=== PATIENT | female | born 1950 | race Caucasian/White ===

== ENCOUNTER 2018-01-08 22:48 | Observation (INO) ==
[2018-01-08] MEDS ORDERED: methylPREDNISolone SOD SUC 125 MG/2 ML VIAL IV STA (23:12)
[2018-01-08] MEDS ORDERED: diphenhydrAMINE 50 MG/1 ML VIAL IV STA (23:12)
[2018-01-08] MEDS ORDERED: FAMOTIDINE 20 MG/2 ML VIAL IV STA (23:12)
[2018-01-08] MEDS ORDERED: EPINEPHrine 1 MG/ML VIAL SUBCUT STA (23:12)
[2018-01-08] MEDS ORDERED: SODIUM CHLORIDE 0.9% 1,000 ML IV PRN (23:31)
[2018-01-08 23:46] LABS: Basophils # 0.1 10*3/uL (0.0-0.2); Basophils % 0.9 % (0.0-0.8); Eosinophils # 0.2 10*3/uL (0.0-0.87); Eosinophils % 2.8 % (0.00-10.9); Hematocrit 43.7 VOL% (35.7-47.0); Hemoglobin 14.1 GM/DL (12.0-16.0); Immature Granulocytes % 0.3 %; Immature Granulocytes Absolute 0.02 #; Lymphocytes # 2.4 10*3/uL (1.4-4.0); Lymphocytes % 30.4 % (21.3-54.2); Mean Corpuscular HGB Conc 32.3 GM/DL (32-36); Mean Corpuscular Hemoglobin 28 PG (27-34); Mean Corpuscular Volume 87.6 FL (87-102); Mean Platelet Volume 9.6 FL (9.6-12.0); Monocytes # 0.8 10*3/uL (0.11-0.8); Monocytes % 10.6 % (1.7-12.7); Neutrophils # 4.3 10*3/uL (1.4-7.4); Platelet Count 202 T/CUMM (130-400); Red Blood Count 4.99 MC/CUMM (3.8-5.5); Red Cell Distribution Width 13.3 % (9.3-17.3); White Blood Count 7.8 T/CUMM (4-12)
[2018-01-08 23:57] LABS: INR 0.9; PT Patient Result 9.4 SECS
[2018-01-08 23:59] LABS: Alanine Aminotransferase 24 U/L (13-56); Albumin 3.8 G/DL (3.4-5.0); Alkaline Phosphatase 57 U/L (45-117); Aspartate Amino Transferase 17 U/L (0-37); Blood Urea Nitrogen 27 MG/DL (7-18); Calcium 9.1 MG/DL (8.5-10.1); Glucose 91 MG/DL (74-106); Osmolality,Calculated 283.4 MOS/KG (273-304); Sodium 140 MMOL/L (136-145); Total Protein 7.5 G/DL (6.4-8.3); Troponin I < 0.015 NG/ML (0.00-0.045)
[2018-01-09] MEDS ORDERED: MORPHINE 4 MG/1 ML VIAL IV PRN (00:12)
[2018-01-09] MEDS ORDERED: ONDANSETRON 4 MG/2 ML VIAL IV PRN (00:12)
[2018-01-09] MEDS: SODIUM CHLORIDE 0.9% 1,000 ML IV SCH ×2 (00:59→15:47)
[2018-01-09] MEDS ORDERED: FAMOTIDINE INJ 40 MG in SODIUM CHLORIDE 0.9% 100 ML IV SCH (01:30)
[2018-01-09] MEDS: diphenhydrAMINE 50 MG/1 ML VIAL IV SCH ×2 (05:42→11:34)
[2018-01-09] MEDS ORDERED: methylPREDNISolone SOD SUC 40 MG/1 ML VIAL IV SCH (08:00)
[2018-01-09] MEDS ORDERED: FAMOTIDINE 20 MG TABLET PO PRN (13:15)
[2018-01-09] MEDS: diphenhydrAMINE CAP 25 MG CAPSULE PO SCH (17:33)
[2018-01-09] MEDS ORDERED: DONEPEZIL 5 MG TABLET PO SCH (21:00)
[2018-01-09] MEDS ORDERED: PRAVASTATIN 20 MG TABLET PO SCH (21:00)
[2018-01-10] MEDS: diphenhydrAMINE CAP 25 MG CAPSULE PO SCH ×2 (00:55→07:34)
[2018-01-10 03:30] VITALS: BP 104/69
[2018-01-10] MEDS: SODIUM CHLORIDE 0.9% 1,000 ML IV SCH (04:35)
[2018-01-10] MEDS ORDERED: predniSONE 20 MG TABLET PO SCH ×2 (09:00)
== END 2018-01-10 10:52 | disposition home or self-care (01) ==
LOC: N.ED 22:48 → N.EDINP 22:48 → SUATTDRO 01-09 00:12 → N.ICU 01-09 00:35
PROVIDERS: ADMIT Internal Medicine Nephrology; ATTEND Internal Medicine